=== PATIENT | male | born 1955 | race Caucasian/White ===

== ENCOUNTER → 2018-09-26 | Outpatient (REF) | payer MEDICARE, OTHER | LOC: M SFHCPLAZ 17:16 | PROVIDERS: ATTEND Dermatology | DX: C44.319 Basal cell carcinoma of skin of other parts of face (principal); D23.4 Other benign neoplasm of skin of scalp and neck; D23.5 Other benign neoplasm of skin of trunk ==

== ENCOUNTER → 2018-11-04 | Outpatient (REF) | payer MEDICARE, OTHER | LOC: M SFHCPLAZ 17:39 | PROVIDERS: ATTEND Dermatology | DX: D22.4 Melanocytic nevi of scalp and neck (principal) | CPT/HCPCS: 11102; 88305; 96573; J7308 ==